=== PATIENT | female | born 1995 | race Two or more races ===

== ENCOUNTER 2022-12-04 11:59 | Inpatient (IN) | payer OTHER ==
[2022-12-04] VITALS (10 sets, daily range): BP systolic 92–135; BP diastolic 54–73
[~2022-12-04] VITALS: Ht 162.6 cm; Wt 88.6 kg
[2022-12-04] MEDS ORDERED: MULTTAB20 PO (12:23)
[2022-12-04] MEDS ORDERED: FAMO20TA PO (12:23)
[2022-12-04] MEDS ORDERED: HOME MED LIST COMPLETE! XX SCH (12:25)
[2022-12-04] MEDS ORDERED: LIDOCAINE 1% MDV 20ML VIAL INFIL PRN (13:20)
[2022-12-04] MEDS ORDERED: TRANEXAMIC ACID INJection 1,000 MG in NS 100 ML IV PRN (13:20)
[2022-12-04] MEDS ORDERED: METHYLERGONOVINE MALEATE 0.2MG/ML 1ML VIAL IM PRN (13:20)
[2022-12-04] MEDS ORDERED: CARBOPROST TROMETHAMINE 250 MCG/ML AMP IM PRN (13:20)
[2022-12-04] MEDS ORDERED: LACTATED RINGER'S 1000 ML IV PRN (13:20)
[2022-12-04] MEDS ORDERED: OXYTOCIN DRIP 30 UNITS in IV 1 EA IV PRN (13:20)
[2022-12-04 13:38] LABS: HEMOGLOBIN 14.3 g/dl (12.0-15.5); MEAN CORPUSCULAR HEMOGLOBIN 29.9 pg (27.0-33.0); MEAN CORPUSCULAR VOLUME 87.9 fl (80.0-96.0); PLATELET COUNT, AUTOMATED 158 10^3/uL (150-450); RED BLOOD COUNT 4.78 10^6/uL (4.00-5.40); WHITE BLOOD COUNT 5.8 10^3/uL (4.0-10.0)
[2022-12-04] MEDS: LR 1,000 ML IV SCH ×3 (13:41→23:03)
[2022-12-04] MEDS ORDERED: OXYTOCIN DRIP 30 UNITS in IV 1 EA IV SCH (14:10)
[2022-12-04] MEDS ORDERED: CALCIUM CARBONATE 500 MG CHEW U/D PO PRN (16:55)
[2022-12-04] MEDS ORDERED: ONDANSETRON 4MG 2ML VIAL IV PRN (22:35)
[2022-12-04] MEDS ORDERED: LR 500 ML IV PRN (22:35)
[2022-12-04] MEDS ORDERED: diphenhydrAMINE 50MG/ML VIAL IV PRN (22:35)
[2022-12-04] MEDS ORDERED: ePHEDrine SULFATE 25 MG/5 ML(5MG/ML) SYRINGE IVP PRN (22:35)
[2022-12-04] MEDS ORDERED: NALOXONE INJ 0.4MG/1ML VIAL IV PRN (22:35)
[2022-12-04] MEDS ORDERED: EPIDURAL/PCA KEYS XX PRN (22:35)
[2022-12-04] MEDS: FENTANYL/ROPIVACAINE/NACL BAG 100 ML EPIDURAL SCH (23:01)
[2022-12-05] VITALS (13 sets, daily range): BP systolic 101–145; BP diastolic 55–74
[2022-12-05] MEDS: FENTANYL/ROPIVACAINE/NACL BAG 100 ML EPIDURAL SCH (07:06)
[2022-12-05] MEDS: LR 1,000 ML IV SCH (09:05)
[2022-12-05 11:10] LABS: CORD GAS ABE V -6.7; CORD GAS HCO3 V 20.6 MMOL/L; CORD GAS O2 SAT V 66.1 %; CORD GAS PH V 7.251 UNITS; CORD GAS SBC V 18.4 MMOL/L; CORD GAS TCO2 V 22.1 MMOL/L
[2022-12-05] MEDS ORDERED: miSOPROStol 50MCG 1/2 TABLET PO ONE (11:10)
[2022-12-05 11:13] LABS: CORD GAS ABE A -2.9; CORD GAS HCO3 A 27.8 MMOL/L; CORD GAS O2 SAT A 32.3 %; CORD GAS PCO2 A 80.1 mmHg; CORD GAS PH A 7.158 UNITS; CORD GAS PO2 A 17.9 mmHg; CORD GAS SBC A 20.7 MMOL/L; CORD GAS TCO2 A 30.2 MMOL/L
[2022-12-05] MEDS ORDERED: OXYTOCIN DRIP 30 UNITS in IV 1 EA IV ONE (11:25)
[2022-12-05] MEDS ORDERED: OXYTOCIN DRIP 30 UNITS in IV 1 EA IV SCH (11:35)
[2022-12-05] MEDS ORDERED: ACETAMINOPHEN TAB 650MG DOSE (2X325MG) PO PRN (11:35)
[2022-12-05] MEDS ORDERED: IBUPROFEN 600MG TAB PO PRN (11:35)
[2022-12-05] MEDS ORDERED: METHYLERGONOVINE MALEATE 0.2 MG TAB PO PRN (11:35)
[2022-12-05] MEDS: PRENATAL VITAMINS CHEWABLE TABLET PO SCH (14:18)
[2022-12-05] MEDS: IBUPROFEN 800 MG TAB PO PRN (14:18)
[2022-12-05] MEDS: ACETAMINOPHEN 500 MG TAB PO PRN (17:45)
[2022-12-05] MEDS: DIBUCAINE 1% OINTMENT 30GM TOP PRN (17:48)
[2022-12-06] MEDS: IBUPROFEN 800 MG TAB PO PRN ×4 (00:28→23:20)
[2022-12-06] MEDS: ACETAMINOPHEN 500 MG TAB PO PRN ×3 (01:34→19:58)
[2022-12-06 06:00] VITALS: BP 116/58
[2022-12-06] MEDS: DIBUCAINE 1% OINTMENT 30GM TOP PRN ×2 (08:37→19:57)
[2022-12-06] MEDS: PRENATAL VITAMINS CHEWABLE TABLET PO SCH (08:38)
[2022-12-06] MEDS: DOCUSATE SODIUM 100MG CAPSULE PO PRN (14:12)
[2022-12-06 18:00] VITALS: BP 108/55
[2022-12-07] MEDS: ACETAMINOPHEN 500 MG TAB PO PRN (03:01)
[2022-12-07 06:00] VITALS: BP 111/62
[2022-12-07] MEDS ORDERED: GABAPENTIN 300 MG CAP PO PRN (06:05)
[2022-12-07] MEDS: PRENATAL VITAMINS CHEWABLE TABLET PO SCH (08:17)
[2022-12-07] MEDS: IBUPROFEN 800 MG TAB PO PRN (08:20)
[2022-12-07] MEDS: DOCUSATE SODIUM 100MG CAPSULE PO PRN (08:39)
[2022-12-07] MEDS: DIBUCAINE 1% OINTMENT 30GM TOP PRN (08:39)
[2022-12-07] MEDS ORDERED: MEASLES,MUMPS,RUBELLA VACCINE INJ (MMR-II) SC.IMMUN ONE (09:00)
== END 2022-12-07 14:30 | disposition home or self-care (01) | DRG 807 ==
LOC: M LDI 11:59 → M OBS 12-05 14:08
PROVIDERS: ADMIT Registered Nurse; ATTEND Advanced Practice Midwife
PROC: 10E0XZZ Delivery of Products of Conception, External Approach (ICD-10-PCS; principal; 2022-12-05)
PROC: 0KQM0ZZ Repair Perineum Muscle, Open Approach (ICD-10-PCS; 2022-12-05)
PROC: 0W8NXZZ Division of Female Perineum, External Approach (ICD-10-PCS; 2022-12-05)
PROC: 0HQ9XZZ Repair Perineum Skin, External Approach (ICD-10-PCS; 2022-12-05)
DX: O48.0 Post-term pregnancy (principal); Z37.0 Single live birth; Z3A.41 41 weeks gestation of pregnancy; O77.0 Labor and delivery complicated by meconium in amniotic fluid; O69.1XX0 Labor and delivery complicated by cord around neck, with compression, not applicable or unspecified; O66.0 Obstructed labor due to shoulder dystocia; O69.2XX0 Labor and delivery complicated by other cord entanglement, with compression, not applicable or unspecified; O62.2 Other uterine inertia; O70.1 Second degree perineal laceration during delivery; O70.0 First degree perineal laceration during delivery